=== PATIENT | male | born 1950 | race Caucasian/White ===

== ENCOUNTER 2017-09-30 12:14 | Emergency (ER) | payer MEDICARE, BC ==
[2017-09-30] MEDS: cefTRIAXone 1 GM Vial IVPUSH SCH (13:33)
[2017-09-30] MEDS: Heparin Sodium 10,000 Units/1 ML MDV IVPUSH ONE (13:44)
[2017-09-30] MEDS: Heparin Sodium/D5W 25,000 UNITS/500 ML BAG IV SCH (13:47)
--- NOTE | 2017-09-30 13:54 | EDM.PDOC ---
ED HPI GENERAL MEDICAL PROBLEM - General Chief Complaint: Respiratory Problem Stated Complaint: FLU? SOB Time Seen by Provider: 09/30/17 12:55 Source of Information: Reports: Patient, Family History Limitations: Reports: No Limitations - History of Present Illness INITIAL COMMENTS - FREE TEXT/NARRATIVE: Patient presents to ER with concerns of shortness of breath. States from 0800- 1000 had episode of continuous belching. States he does have issues like this in the am sometimes but usually resides after a few minutes with drinking cold water. Today, drank 6 glasses with no improvement. This was followed by acute shortness of breath. Does have a history of COPD so had a nebulizer treatment at home thinking that would help but had no improvement. He states the shortness of breath had all but cleared by the time he reached [place] to the ER. Patient has had a 2 day history of body aches, feeling feverish and tired. He figured it was possibly influenza so was resting and pushing fluids and had actually thought that had improved. He denies a cough. No nausea or vomiting. NO diaphoresis. At present, only symptom is a severe headache. Onset: Today, Sudden Duration: Hour(s):, Improving Location: Reports: Chest Associated Symptoms: Reports: Fever/Chills, Malaise, Shortness of Breath, Weakness. Denies: Chest Pain, Cough, Diaphoresis, Loss of Appetite, Nausea/ Vomiting - Related Data Allergies Allergy/AdvReac Type Severity Reaction Status Date / Time No Known Allergies Allergy Verified 09/30/17 12:36 Home Meds: Home Meds Dutasteride [Avodart] 0.5 mg PO DAILY 12/17/13 [History] Albuterol Sulfate [Proventil Hfa] 2 puff INH Q4H PRN 09/30/17 [History] Albuterol/Ipratropium [DuoNeb 3.0-0.5 MG/3 ML] 3 ml NEB QID 09/30/17 [History] Ascorbate Calcium [Vitamin C] 500 mg PO DAILY 09/30/17 [History] Budesonide/Formoterol Fumarate [Symbicort 160-4.5 Mcg Inhaler] 2 puff INH TID [History] Calcium Carbonate/Vitamin D3 [Calcium 600 + Vit D Tablet] 1 each PO DAILY [History] Cholecalciferol (Vitamin D3) [Vitamin D3] 2,000 unit PO DAILY 09/30/17 [History] Lisinopril 10 mg PO DAILY 09/30/17 [History] Magnesium Oxide [Magnesium] 400 mg PO DAILY 09/30/17 [History] Metoprolol Succinate 100 mg PO DAILY 09/30/17 [History] Multivitamin [Daily Multiple Vitamin] 1 tab PO DAILY 09/30/17 [History] Polyethylene Glycol 3350 [MiraLAX] 17 gm PO DAILY 09/30/17 [History] Tumeric 1 cap PO DAILY 09/30/17 [History] Vedolizumab [Entyvio] 300 mg IV ASDIRECTED 09/30/17 [History] Past Medical History HEENT History: Reports: Impaired Vision Cardiovascular History: Reports: Hypertension, SOB on Exertion Respiratory History: Reports: COPD Gastrointestinal History: Reports: Other (See Below) Other Gastrointestinal History: ULCERATIVE COLITIS Genitourinary History: Reports: BPH Neurological History: Reports: Headaches, Chronic - Past Surgical History HEENT Surgical History: Reports: Cataract Surgery GI Surgical History: Reports: Colonoscopy Social & Family History - Tobacco Use Smoking Status *Q: Current Every Day Smoker Years of Tobacco use: 40 Packs/Tins Daily: 1 Used Tobacco, but Quit: No Second Hand Smoke Exposure: No - Caffeine Use Caffeine Use: Reports: Coffee - Alcohol Use Days Per Week of Alcohol Use: 0 - Recreational Drug Use Recreational Drug Use: No ED ROS GENERAL - Review of Systems Review Of Systems: See Below Constitutional: Reports: Fever, Chills, Malaise, Weakness, Fatigue. Denies: Diaphoresis HEENT: Reports: Rhinitis. Denies: Ear Pain, Throat Pain Respiratory: Reports: Shortness of Breath. Denies: Wheezing, Cough, Sputum Cardiovascular: Denies: Chest Pain, Edema, Lightheadedness Endocrine: Reports: Fatigue GI/Abdominal: Denies: Abdominal Pain, Decreased Appetite, Nausea, Vomiting Musculoskeletal: Reports: Joint Pain Skin: Reports: No Symptoms Neurological: Reports: Weakness Psychiatric: Reports: No Symptoms ED EXAM, GENERAL - Physical Exam Exam: See Below Exam Limited By: No Limitations General Appearance: Alert, WD/WN, No Apparent Distress Ears: Normal External Exam, Normal TMs Nose: Normal Inspection, Normal Mucosa, No Blood Throat/Mouth: Normal Inspection, Normal Oropharynx Head: Normocephalic Neck: Normal Inspection, Supple, Non-Tender Respiratory/Chest: No Respiratory Distress, Decreased Breath Sounds Cardiovascular: Regular Rate, Rhythm GI/Abdominal: Normal Bowel Sounds, Soft, Non-Tender Extremities: Normal Inspection, Normal Capillary Refill Neurological: Alert, Oriented Psychiatric: Normal Affect, Normal Mood Skin Exam: Warm, Dry Course - Vital Signs Last Recorded V/S: Last Vital Signs Temp 97.8 F 09/30/17 12:17 Pulse 117 H 09/30/17 12:17 Resp 16 09/30/17 12:17 BP 113/71 09/30/17 12:17 Pulse Ox 92 L 09/30/17 12:17 - Orders/Labs/Meds Orders: Active Orders 24 hr Category Date Time Status Chest 2V [CR] Stat Exams 09/30/17 12:33 Taken Heparin Sodium/D5W [Heparin 25,000 Units in D5W 500 ML] Med 09/30/17 13:30 Active 25,000 units in 500 ml IV TITRATE cefTRIAXone [Rocephin] Med 09/30/17 13:30 Active 1 gm IVPUSH Q24H Medication Orders Ceftriaxone Sodium (Rocephin) 1 gm IVPUSH Q24H KIM Last Admin: 09/30/17 13:33 Dose: 1 gm Heparin Sodium/Dextrose (Heparin 25,000 Units In D5w 500 Ml) 25,000 units in 500 mls @ 21.446 mls/hr IV TITRATE KIM; Protocol Last Admin: 09/30/17 13:47 Dose: 11.19 units/kg/hr, 20 mls/hr Labs: Laboratory Tests 09/30/17 09/30/17 09/30/17 Range/Units 12:46 12:46 12:46 WBC 22.6 H* (5.0-10.0) 10^3/uL RBC 5.10 (4.50-6.00) 10^6/uL Hgb 15.8 (14.0-18.0) g/dL Hct 46.1 (40.0-54.0) % MCV 90.4 (82.0-94.0) fL MCH 31.0 (27.0-32.0) pg MCHC 34.3 (33.0-38.0) g/dL RDW Coeff of Chloé 14.9 (11.0-15.0) % Plt Count 230 (150-400) 10^3/uL Add Manual Diff Yes Neutrophils % (Manual) 81 (35-85) % Band Neutrophils % 3 (0-5) % Lymphocytes % (Manual) 5 L (21-55) % Monocytes % (Manual) 11 (2-12) % PT 9.8 (9.7-12.3) SEC INR 0.94 (0.92-1.18) APTT 33.4 H (23.2-32.3) SEC D-Dimer, Quantitative 0.32 (0.00-0.50) Sodium 129 L (136-145) mEq/L Potassium 4.1 (3.5-5.0) mEq/L Chloride 95 L (98-106) mEq/L Carbon Dioxide 23 (21-32) mmol/L BUN 18 (7-18) mg/dL Creatinine 2.0 H D (0.7-1.3) mg/dL Est Cr Clr Drug Dosing 38.80 mL/min Estimated GFR (MDRD) 33 L (>=60) mL/min Glucose 122 H D (75-99) mg/dL Calcium 8.6 (8.4-10.1) mg/dL Total Bilirubin 1.3 H (0.0-1.0) mg/dL AST 45 H (15-37) U/L ALT 45 (12-78) U/L Alkaline Phosphatase 71 (46-116) U/L Lactate Dehydrogenase 148 (100-190) U/L Creatine Kinase 129 (35-232) U/L Troponin I 2.453 H* (0.00-0.06) ng/mL Total Protein 6.8 (6.4-8.2) g/dL Albumin 3.0 L (3.4-5.0) g/dL Meds: Medications Generic Name Dose Route Start Last Admin Trade Name Freq PRN Reason Stop Dose Admin Ceftriaxone Sodium 1 gm 09/30/17 13:30 09/30/17 13:33 Rocephin IVPUSH 1 gm Q24H KIM Administration Heparin Sodium/Dextrose 25,000 units in 500 mls @ 21.446 mls/hr 09/30/17 13: 30 09/30/17 13:47 Heparin 25,000 Units In D5w 500 Ml IV 11.19 units/kg/hr TITRATE KIM 20 mls/hr Administration Protocol 12 UNITS/KG/HR Discontinued Medications Generic Name Dose Route Start Last Admin Trade Name María Elena PRN Reason Stop Dose Admin Heparin Sodium (Porcine) 5,000 units 09/30/17 13:36 09/30/17 13:44 Heparin Sodium IVPUSH 09/30/17 13:37 5,000 units .BOLUS ONE Administration - Re-Assessments/Exams Free Text/Narrative Re-Assessment/Exam: 09/30/17 1310 Lab results reviewed. Does have elevated troponin in acute [place] range, EKG does show ST & T abnormality in lateral leads. Sodium low at 129. WBC high at 22.6. Creatinine at 2.0. Contacted [facility], spoke with Dr. Hobbs about status. Agreed to accept the patient in transfer. ALS paged Risks and benefits of transfer discussed with patient. Risks of transfer include worsening status to include , vehicular crash. Benefits include cardiac care, further testing with specialty. Risks of nontransfer include worsening status and versus benefit of treatment with own provider close to home. Patient and agree to transfer. Orders advised per Dr. Hobsb in regards to heparin drip and heparin bolus. Rocephin given. Departure - Departure Time of Disposition: 13:52 Disposition: DC/Tfer to Acute Hospital 02 Condition: Undetermined Clinical Impression: Non-STEMI (non-ST elevated myocardial infarction) - Discharge Information Referrals: Piero Spain MD [Primary Care Provider] - Forms: ED Department Discharge Additional Instructions: Transfer to [facility] to Dr. Hobbs per ALS. - My Orders Last 24 Hours: My Active Orders 09/30/17 12:33 Chest 2V [CR] Stat 09/30/17 13:30 Heparin Sodium/D5W [Heparin 25,000 Units in D5W 500 ML] 25,000 units in 500 ml IV TITRATE cefTRIAXone [Rocephin] 1 gm IVPUSH Q24H - Assessment/Plan Last 24 Hours: My Active Orders 09/30/17 12:33 Chest 2V [CR] Stat 09/30/17 13:30 Heparin Sodium/D5W [Heparin 25,000 Units in D5W 500 ML] 25,000 units in 500 ml IV TITRATE cefTRIAXone [Rocephin] 1 gm IVPUSH Q24H
[2017-09-30 14:02] VITALS: BP 114/67
== END 2017-09-30 14:15 ==
LOC: CC.ED 12:14
DX: I21.4 Non-ST elevation (NSTEMI) myocardial infarction (principal); J44.9 Chronic obstructive pulmonary disease, unspecified; I10 Essential (primary) hypertension; F17.210 Nicotine dependence, cigarettes, uncomplicated; Z79.899 Other long term (current) drug therapy
CPT/HCPCS: 36415; 71046; 80053; 82550; 83615; 84484; 85025; 85379; 85610; 85730; 87804; 93005; 96365; 96375; 99285; J0696; J1644

== ENCOUNTER 2021-08-08 20:20 | Emergency (ER) | payer MEDICARE, BC ==
[2021-08-08 20:36] VITALS: BP 156/99; PULSE 69
[2021-08-08] MEDS ORDERED: Acetaminophen/HYDROcodone 325-5 MG Tab PO ONE (21:21)
[2021-08-08] MEDS ORDERED: Take Home: Acetaminophen/HYDROcodone 325-5 MG, 2 Tab Pack PO ONE (21:21)
[2021-08-08] MEDS ORDERED: Ondansetron 4 MG Tab.DIS PO ONE (21:25)
[2021-08-08] MEDS ORDERED: Take Home: Ondansetron 4 MG Tab.DIS, 2 Tab Pack PO ONE (21:26)
== END 2021-08-08 21:50 | disposition home or self-care (01) ==
LOC: CC.ED 20:20
DX: S42.201A Unspecified fracture of upper end of right humerus, initial encounter for closed fracture (principal); J44.9 Chronic obstructive pulmonary disease, unspecified; I10 Essential (primary) hypertension; N40.0 Benign prostatic hyperplasia without lower urinary tract symptoms; Z79.82 Long term (current) use of aspirin; Z79.899 Other long term (current) drug therapy; Z87.891 Personal history of nicotine dependence; W00.0XXA Fall on same level due to ice and snow, initial encounter
CPT/HCPCS: 73030-RT; 99283; A9270-GY